=== PATIENT | female | born 1955 | race Caucasian/White ===

== ENCOUNTER 2016-09-05 18:44 | Emergency (ER) | payer MEDICAID ==
[~2016-09-05] VITALS: Ht 152.4 cm; Wt 71.8 kg
[~2016-09-05 18:44] MED LIST: GLYB5TAB9 PO; METF850T2 PO; PIOG45TA PO; [UNRECOGNIZED DRUG - CODE] PO
[2016-09-05 19:29] VITALS: BP 157/59
[2016-09-05] MEDS: MECLIZINE 25 MG TAB PO ONE (22:01)
[2016-09-05 22:28] LABS: BASOPHILS # (AUTO) 0.3 K/uL (0.00-0.22); BASOPHILS % (AUTO) 3.8 % (0.0-2.0); EOSINOPHILS # (AUTO) 0.2 K/uL (0-0.4); EOSINOPHILS % (AUTO) 2.2 % (0.0-4.0); HEMATOCRIT 33.7 % (36-48); HEMOGLOBIN 11.4 g/dL (12.0-16.0); LYMPHOCYTES # (AUTO) 2.4 K/uL (2.5-16.5); LYMPHOCYTES % (AUTO) 29.7 % (20.5-51.1); MEAN CORPUSCULAR HEMOGLOBIN 29 pg (27-31); MEAN CORPUSCULAR HGB CONC 34 g/dL (33-37); MEAN CORPUSCULAR VOLUME 87 fL (80-94); MONOCYTES # (AUTO) 0.5 K/uL (0.8-1.0); MONOCYTES % (AUTO) 5.8 % (1.7-9.3); NEUTROPHILS # (AUTO) 4.8 K/uL (1.8-7.7); NEUTROPHILS % (AUTO) 58.5 % (42.2-75.2); PLATELET COUNT (AUTO) 229 K/uL (140-450); RED BLOOD CELL COUNT(AUTO) 3.89 MIL/uL (4.20-5.40); RED CELL DISTRIBUTION WIDTH 13.6 % (11.6-13.7); WHITE BLOOD COUNT (AUTO) 8.2 K/uL (4.8-10.8)
[2016-09-05 22:40] LABS: ANION GAP 11.1 (8-16); CALCIUM 9.4 mg/dL (8.5-10.1); CARBON DIOXIDE 26.8 mmol/L (21-32); CREATININE 0.8 mg/dL (0.6-1.3); POTASSIUM 3.9 mmol/L (3.5-5.1)
[2016-09-05 22:45] LABS: INR 1.2 (0.8-1.2); PARTIAL THROMBOPLASTIN TIME 28.3 secs (22-35.6)
[2016-09-05 22:46] LABS: ALBUMIN 3.6 g/dL (3.4-5.0); TOTAL BILIRUBIN 0.4 mg/dL (0.0-1.0)
[2016-09-05] MEDS: LORazepam 2 MG/ML VIAL IVP ONE (23:00)
[2016-09-05] MEDS: NACL 0.9% 1,000 ML IV ONE (23:07)
[2016-09-06 00:20] VITALS: BP 157/59
== END 2016-09-06 00:20 | disposition home or self-care (01) ==
LOC: MED 18:44
DX: F41.9 Anxiety disorder, unspecified (principal); E78.00 Pure hypercholesterolemia, unspecified; E11.9 Type 2 diabetes mellitus without complications
CPT/HCPCS: 36415; 70360; 70450; 70490; 80053; 85025; 85610; 85730; 96361; 96374; 99285; J2060; J7030; J8597

== ENCOUNTER 2022-10-22 04:30 | Emergency (ER) | payer MEDICAID, OTHER ==
[~2022-10-22] VITALS: Ht 157.5 cm; Wt 63.0 kg
[~2022-10-22 04:30] MED LIST changes: +METF-1197 PO; -METF850T2 PO; -PIOG45TA PO; +PIOG45TA39 PO
--- NOTE | 2022-10-22 04:34 | NUR ---
PT BIBA [facility] ER BED 3
[2022-10-22 04:35] VITALS: BP 125/67; PULSE 72; RESP 18; TEMP 98; O2SAT 98
--- NOTE | 2022-10-22 04:55 | NUR ---
DR. DWYER AT THE BED SIDE
[2022-10-22] MEDS ORDERED: MORPHINE SULFATE 4 MG/ML SYR IM ONE (05:00)
--- NOTE | 2022-10-22 05:00 | NUR ---
URINE DIPSTICK WAS PERFORMED
[2022-10-22] MEDS ORDERED: HYDR-5191 PO (05:17)
[2022-10-22] MEDS ORDERED: OMEP40EC24 PO (05:17)
[2022-10-22 05:36] VITALS: BP 125/67; PULSE 72; RESP 18; TEMP 98; O2SAT 98
--- NOTE | 2022-10-22 05:39 | NUR ---
Patient discharged with v/s stable. Written and verbal after care instructions given and explained. Patient alert, oriented and verbalized understanding of instructions. Ambulatory with steady gait. All questions addressed prior to discharge. ID band removed. Patient advised to follow up with PMD. Rx of HYDROCODONE AND OMEPRAZOLE given. Patient educated on indication of medication including possible reaction and side effects. Opportunity to ask questions provided and answered.
== END 2022-10-22 05:36 | disposition home or self-care (01) ==
LOC: MED 04:30
DX: R10.11 Right upper quadrant pain (principal); E11.9 Type 2 diabetes mellitus without complications; I10 Essential (primary) hypertension; Z79.4 Long term (current) use of insulin; Z79.899 Other long term (current) drug therapy
CPT/HCPCS: 96372; 99283; J2270; 81002